=== PATIENT | female | born 1940 | race Caucasian/White ===

== ENCOUNTER 2023-12-24 07:56 | Outpatient (AMB) | payer MEDICARE, SELFPAY ==
--- NOTE | 2023-12-24 08:02 | MHC.OFFVIS ---
Vital Signs 12/24/23 08:06 Height 5 ft 6 in Weight 145 lb BMI 23.4 BP 136/80 Blood Pressure Location Lt brachial Position Sitting Respiration 14 Pulse 78 Pulse Source Pulse Oximeter Pulse Oximetry (%) 99 Oxygen Delivery Method Room Air Intake Visit Reasons: Chronic Leg Pain Allergies rifampin Adverse Reaction (Severe, Verified 12/24/23 08:08) Rash Medication List - Last Reconciled 12/24/23 by Jeanette Lee LPN amoxicillin 500 mg PO BID cholecalciferol (vitamin D3) 125 mcg PO DAILY doxycycline monohydrate 100 mg PO BID lactobacillus combination no.9 (Adult 50 Plus Probiotic) 4,000 mmu cells PO DAILY omega 1-myf-dka-fish oil 1,000 mg (120 mg-180 mg) (Fish Oil) 1 cap PO DAILY valsartan 40 mg PO DAILY HPI HPI Chronic Leg Pain: Details: 83-year-old female who presents today to the office for evaluation of chronic leg pain. 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 She had delayed wound healing and developed infections after the sarcoma removal surgery about 10 years ago. She saw an infectious disease specialist about 10 years ago. 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 She has been seeing Dr. Ross. Per the orthopedic note, there is some evidence of hardware loosening that might be moving and irritating as she bears weight on the left leg. On the last visit her the orthopedic surgeon did not think this was infected. Lab work was ordered. She did have a high ESR and CRP but blood counts were normal and cultural cultures have been negative. She had an accidental injury about two years ago and had left tibial fracture repair. She rates her pain at 6/10 in the morning after waking up. Her pain aggravates as the day progresses, and walking makes the pain worse. She takes ibuprofen 6 tablets a day with relief so there is certainly a nociceptive component of this pain. She had used Tylenol in the past with good relief, but it stopped working. She has not tried gabapentin in the past. 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 Alert and oriented. Mood and affect appropriate. Follows and participates in conversation appropriately. Respiratory effort is unlabored. Able to transition from sit to stand unassisted. Ambulates with bilaterally normal heel strike and toe off. There is area that is warm to touch, swollen, and red in color. There is no exquisite tenderness, but she does endorse episodes of increased sensitivity surrounding her incision sites. There is no drainage. Results Reviewed Results Reviewed: 10/05/23: Left x-ray tibia fibula Left Leg Assessment & Plan Assessment & Plan (1) Other chronic osteomyelitis, left tibia and fibula: Code(s): M86.662 - Other chronic osteomyelitis, left tibia and fibula Category: Medical (2) History of osteosarcoma: Code(s): Z85.830 - Personal history of malignant neoplasm of bone Category: Medical (3) Chronic leg pain: Code(s): M79.606 - Pain in leg, unspecified; G89.29 - Other chronic pain Category: Medical Plan I recommended that she reestablish care with an ID specialist, who can review her microbiology data to date and make recommendations in regards to whether she needs to continue on antibiotics. I don?t think her leg is infected at this time, and her orthopedic surgeon seems to have the same opinion. Regardless, given the possibility of an indolent chronic osteomyelitis, I am hesitant to recommend any kind of neuromodulation device for her pain treatment. At this time, we will start with a trial of gabapentin taken twice daily to see if that might help with the neuropathic component of her pain. A second possibility is a CRPS-type process as evidenced by erythema, swelling, warmth, and allodynia. Given these findings, I will schedule her for a left lumbar sympathetic block with local anesthetic only to see if that provides her any relief. Discussed the risks and benefits of the procedure with the patient in detail. All questions were answered. The patient is on board with the plan. Justification for interventional therapy: ? Patient with average pain > 6/10 ? Patient has exhausted conservative therapy ? Patient unable to tolerate physical therapy due to pain . Patient has a good understanding of their pain condition and has appropriate mental and social support Scribed for Dr. Sam by Jose Patel, medical massage therapist, on 12/24/2023. I, Dr. Sam, have personally reviewed and agree with the information entered by the scribe. Medications: New gabapentin 300 mg PO BID 60 caps 0RF Coding Level of Care Code New Pt Level 4 (45822) Diagnoses Other chronic osteomyelitis, left tibia and fibula M86.662 History of osteosarcoma Z85.830 Chronic leg pain M79.606; G89.29
[2023-12-24 08:06] VITALS: BP 136/80; PULSE 78; RESP 14; O2SAT 99; BMI 23.4
== END 2023-12-24 09:01 | disposition home or self-care (01) ==
PROVIDERS: PCP Nurse Practitioner Adult Health; Referring Provider Nurse Practitioner Adult Health; Visit Provider Internal Medicine
DX: M86.662 Other chronic osteomyelitis, left tibia and fibula (principal); Z85.830 Personal history of malignant neoplasm of bone; M79.606 Pain in leg, unspecified; G89.29 Other chronic pain
CPT/HCPCS: 99204

== ENCOUNTER → 2023-12-24 07:56 | Outpatient (BNVA) | payer MEDICARE, SELFPAY | PROVIDERS: PCP Nurse Practitioner Adult Health; Referring Provider Nurse Practitioner Adult Health; Visit Provider Internal Medicine | DX: M79.605 Pain in left leg (principal); G89.29 Other chronic pain; M86.662 Other chronic osteomyelitis, left tibia and fibula; Z85.830 Personal history of malignant neoplasm of bone | CPT/HCPCS: 99202 ==